=== PATIENT | male | born 1985 | race Caucasian/White ===

== ENCOUNTER → 2017-10-21 | Outpatient (CLI) | payer OTHER ==
[~2017-10-21] MED LIST: ACET500 PO; ALBU90I INH; ALBU90OI INH; AMOX500 PO; AZO CRANBERRY; Amoxicillin500 MG PO; Augmentin 875-1 EACH PO; BELPTAB PO; CEPH500 PO; CIPR250 PO; CIPR500 PO; CODGUAEL PO; CYCL10 PO; Cipro250 MG PO; Colace100 MG PO; DOXY100 PO; Flonase 0.05% N16 GM; HYDACE5 PO; HYDGUAL120 PO; IBUHYD PO; IBUP800 PO; KETO10 PO; LEVFLO500 PO; NAPR500 PO; OXYACE5T PO; PENVK250 PO; PENVK500 PO; PHENA200 PO; PRED10 PO; PROM25 PO; PSYL5.85P PO; Percocet 5-3251 EACH PO; Pyridium200 MG PO; RANI150 PO; RXCYCL10 PO; RXHYDACE PO; RXOXYACE PO; RXPENVK250 PO; RXTRAM50 PO; SULTRIDS PO; Sudogest60 MG PO; TOBDEXOPO BOTHEYES; TRAM50 PO; TRAZ50 PO; Zithromax250 MG PO; Zofran Odt4 MG SL
[2017-10-21 12:25] LABS: Specimen Source PENIS
[2017-10-22 03:16] LABS: Source Penis
== END ==
LOC: LAB EV 12:23
PROVIDERS: Physician Assistant
DX: Z72.51 High risk heterosexual behavior (principal)
CPT/HCPCS: 87070; 87205; 87491; 87591